=== PATIENT | male | born 1960 | race Hispanic/Latino ===

== ENCOUNTER 2017-10-31 10:40 | Emergency (ER) | payer SELFPAY ==
[2017-10-31] MEDS ORDERED: ASPIRIN 325 MG TAB ONE (12:00)
--- NOTE | 2017-10-31 12:09 | RAD REPORT ---
EXAM DESCRIPTION: CT - Ct Stroke Brain Wo Cont - 10/31/2017 11:47 am CLINICAL HISTORY: Numbness and aphasia COMPARISON: None. TECHNIQUE: Computed axial tomography of the head was obtained. IV contrast was not requested. All CT scans are performed using dose optimization technique as appropriate and may include automated exposure control or mA/KV adjustment according to patient size. FINDINGS: Small area of increased density is present along the frontal convexities bilaterally. The ventricles are normal in caliber. Shift of midline structures is not noted. No hypodense lesions are seen. Fluid within the sinuses/ mastoids is not seen. IMPRESSION: Small areas increased density along the frontal convexities may represent meningiomas. S mall subdural hematomas are another consideration. MRI is recommended Maurizio Aguiar of the emergency room was notified 11:55 a.m. October 31, 2017
[2017-10-31 12:16] LABS: Absolute Lymphocytes (CBC) 1.6 K/uL (0.7-4.9); Absolute Monocytes 0.5 K/uL (0.1-1.3); Absolute Neutrophil 6.8 K/uL (1.8-8.0); Basophils % 0.6 % (0-1.3); Eosinophils % 1.2 % (0-4.4); Hematocrit 47.8 % (39.6-49.0); Lymphocytes % 17.7 % (15.3-44.8); MCH 29.2 pg (27.0-35.0); MCV 88.4 fL (80-100); MPV 12.8 fL (7.6-11.3); Monocytes % 5.4 % (3.3-12.3); RBC Red Blood Cell Count 5.41 M/uL (4.33-5.43)
[2017-10-31 12:17] LABS: Potassium 3.7 mEq/L (3.6-5.0)
[2017-10-31 12:18] LABS: Protime INR 1.1
[2017-10-31 12:23] LABS: Albumin 3.9 g/dL (3.2-5.5); Bilirubin Direct 0.1 mg/dL (0-0.2); Bilirubin Total 0.8 mg/dL (0.3-1.2); Protein, Total 7.2 g/dL (6.0-8.3)
--- NOTE | 2017-10-31 12:31 | RAD REPORT ---
EXAM DESCRIPTION: Brielle Single View10/31/2017 11:54 am CLINICAL HISTORY: Chest pain COMPARISON: none FINDINGS: The lungs appear clear of acute infiltrate. The heart is normal size IMPRESSION: No acute abnormalities displayed
[2017-10-31 12:46] LABS: Urine Blood 2+ (NEG); Urine Glucose NEGATIVE (NEG); Urine Protein NEGATIVE (NEG); Urine Specific Gravity 1.015 (1.005-1.030)
[2017-10-31 13:40] LABS: Urine Bacteria <20 /HPF (NONE SEEN); Urine Culture Reflex Order NOT NEEDED
[2017-10-31 13:41] LABS: Urine Mucus SLIGHT /HPF (NONE SEEN)
[2017-10-31 13:50] LABS: Blood Morphology Comment NOT SEEN (NOT SEEN); Platelet Estimate DECR; Platelets, Giant RARE; Urine White Blood Cell Casts OK
--- NOTE | 2017-10-31 14:57 | ER ---
Nurse's Notes [facility] Name: Pranav Bacon Age: 57 yrs Sex: Male : 1960 Arrival Date: 10/31/2017 Time: 10:46 Bed 14 Private MD: Diagnosis: Meningioma versus subdural hematoma;Headache;Aphasia-Expressive;Thrombocytopenia, unspecified Presentation: 10/31 11:02 Presenting complaint: Patient states: "I just had an episode where I could not speak aa5 about 20 minutes ago". Episode has resolved, speech is clear. Pt also c/o PAUL x 1-2 weeks ago. Pt states "my doctor says is just tension and stress". Pt also reports numbness to left hand since last night. Transition of care: patient was not received from another setting of care. Onset of symptoms was October 31, 2017. Initial Sepsis Screen: Does the patient meet any 2 criteria? No. Patient's initial sepsis screen is negative. Does the patient have a suspected source of infection? No. Patient's initial sepsis screen is negative. Care prior to arrival: None. 11:02 Method Of Arrival: Ambulatory aa5 11:02 Acuity: MARTIN 2 aa5 Triage Assessment: 11:15 Headache History: Denies prior headaches. rb1 11:15 Pain: Pain began x 2 weeks ago. rb1 11:15 Pain: Also complains of. rb1 Historical: - Allergies: 11:05 PENICILLINS; aa5 - Home Meds: 11:06 meloxicam oral oral [Active]; Cyclobenzaprine Oral [Active]; aa5 - PMHx: 11:05 None; aa5 - PSHx: 11:05 Appendectomy; Knee surgery; aa5 - Immunization history:: Adult Immunizations up to date. - Social history:: Smoking status: Patient/guardian denies using tobacco. Screenin:15 Abuse screen: Denies threats or abuse. Nutritional screening: No deficits noted. rb1 Tuberculosis screening: No symptoms or risk factors identified. Fall Risk None identified. 11:50 Patient has been NPO before screening. The patient is alert, able to follow commands. rb1 The patient does not exhibit slurred or garbled speech The patient is not exhibiting difficulty speaking. The patient does not exhibit difficulty understanding words. The patient is able to swallow own secretions with no drooling or need for suction. Patient tolerated one teaspoon of water. No drooling, immediate coughing, gurgling, or clearing of the throat was noted. The patient tolerated 90mL of water. No drooling, immediate coughing, gurgling, or clearing of the throat was noted. The patient passed the bedside swallow screening. Oral medications may be given as ordered. Contact Physician for further diet orders. Provider notified of bedside swallow screening results: Maurizio Aguiar FORM TAMPER OPERATOR. Assessment: 11:15 General: Appears in no apparent distress. comfortable, obese, Behavior is calm, rb1 cooperative. Pain: Complains of pain in head Pain currently is 5 out of 10 on a pain scale. Neuro: Level of Consciousness is awake, alert, obeys commands, Oriented to person, place, time, situation, Signal Circuit Designer are equal bilaterally Moves all extremities. Gait is steady, Speech is normal, Facial symmetry appears normal, Pupils are PERRLA. Cardiovascular: Capillary refill < 3 seconds is brisk in bilateral fingers. Respiratory: Airway is patent Respiratory effort is even, unlabored, Respiratory pattern is regular, symmetrical. GI: No signs and/or symptoms were reported involving the gastrointestinal system. : No signs and/or symptoms were reported regarding the genitourinary system. Derm: Skin is dry, Skin is normal, Skin temperature is warm. Musculoskeletal: Range of motion: intact in all extremities. 12:15 Reassessment: Patient appears in no apparent distress at this time. No changes from rb1 previously documented assessment. Provider at bedside updating pt. and family on POC. 13:13 Reassessment: Patient appears in no apparent distress at this time. Patient and/or rb1 family updated on plan of care and expected duration. Pain level reassessed. Patient is alert, oriented x 3, equal unlabored respirations, skin warm/dry/pink. Family at bedside. 14:10 Reassessment: Patient appears in no apparent distress at this time. No changes from rb1 previously documented assessment. 15:12 Reassessment: Patient appears in no apparent distress at this time. Patient and/or rb1 family updated on plan of care and expected duration. Pain level reassessed. Patient is alert, oriented x 3, equal unlabored respirations, skin warm/dry/pink. 16:10 Reassessment: Patient appears in no apparent distress at this time. No changes from rb1 previously documented assessment. Pt. received a platelet transfusion, tolerated well. No complaints at this time. Vital Signs: 11:05 BP 140 / 98; Pulse 100; Resp 18 S; Temp 98.4(TE); Pulse Ox 98% on R/A; Weight 111.13 kg aa5 (R); Height 5 ft. 5 in. (165.10 cm) (R); Pain 0/10; 12:00 BP 148 / 99; Pulse 100; Resp 19; Pulse Ox 99% on R/A; rb1 13:00 BP 149 / 91; Pulse 96; Resp 17; Pulse Ox 96% on R/A; rb1 14:00 BP 124 / 98; Pulse 84; Resp 16; Pulse Ox 96% on R/A; Pain 6/10; rb1 15:00 BP 140 / 90; Pulse 82; Resp 15; Pulse Ox 99% on R/A; rb1 15:30 BP 138 / 98; Pulse 92; Resp 17; Pulse Ox 98% on R/A; rb1 16:10 BP 147 / 98; Pulse 86; Resp 20; Pulse Ox 99% on R/A; rb1 11:05 Body Mass Index 40.77 (111.13 kg, 165.10 cm) aa5 NIH Stroke Scale Scores: 11:26 NIHSS Score: 0 pm1 ED Course: 10:46 Patient arrived in ED. sb2 11:03 Triage completed. aa5 11:03 Arm band placed on. aa5 11:13 Maurizio Aguiar NP is PHCP. pm1 11:13 Mike Bravo MD is Attending Physician. pm1 11:15 Patient has correct armband on for positive identification. Bed in low position. Call rb1 light in reach. Side rails up X 1. substation inspector on. Pulse ox on. NIBP on. 11:15 Inserted saline lock: 22 gauge in right antecubital area, using aseptic technique. rb1 Blood collected. 11:47 CT Stroke Brain w/o Contrast In Process Unspecified. EDMS 11:51 Anne Cruz, OLIVA is Primary Nurse. rb1 11:54 X-ray completed. Portable x-ray completed in exam room. Patient tolerated procedure jr1 well. Patient moved to radiology via wheelchair. 11:55 Stroke CXR 1 View In Process Unspecified. EDMS 12:31 EKG done, by ED staff, reviewed by Maurizio Aguiar NP. dh3 15:01 initiated transfer with [facility] with Devan. eb 15:10 \\[id number] connected with Stefania WALKER for patient transfer/ has accepted the eb patient. 15:16 Administrative Approval given by Devan Wagner. Pt to go to [address] [place] [address] bed 19, Report eb to be given to transfer line. 16:18 No provider procedures requiring assistance completed. Patient transferred, IV remains rb1 in place. Administered Medications: 12:06 Not Given (provider changed order pending test results): Aspirin 325 mg PO once rb1 Point of Care Testing: Blood Glucose: 12:15 Blood Glucose: 100 mg/dL; dh3 Ranges: Outcome: 14:57 ER care complete, transfer ordered by MD. pm1 16:18 Patient left the ED. rb1 16:18 Transferred by ground EMS to [facility], Transfer form completed. rb1 16:18 Condition: stable 16:18 Instructed on the need for transfer. NIH Stroke Scale - NIH Stroke Score Date: 10/31/2017 Time: 11:26 Total Score = 0 1a. Level of Consciousness (LOC) - 0(Alert) 1b. Level of Consciousness (LOC) (Year \\T\\ Age) - 0(Both) 1c. LOC Commands (Open \\T\\ Closes Eyes/Lining Setter) - 0(Both) 2. Best Gaze (Lateral Gaze Paresis) - 0(Normal) 3. Visual Field Loss - 0(No visual loss) 4. Facial Palsy - 0(Normal) 5a. Left Arm: Motor (10-second hold) - 0(No drift) 5b. Right Arm: Motor (10-second hold) - 0(No drift) 6a. Left Leg: Motor (5-second hold - always test supine) - 0(No drift) 6b. Right Leg: Motor (5-second hold - always test supine) - 0(No drift) 7. Limb Ataxia (finger/nose \\T\\ heel/goddard - test with eyes open) - 0(Absent) 8. Sensory Loss (pinprick arms/legs/face) - 0(Normal) 9. Best Language: Aphasia (description/naming/reading) - 0(No aphasia) 10. Dysarthria (speech clarity - read or repeat words) - 0(Normal) 11. Extinction and Inattention (visual/tactile/auditory/spatial/personal) - 0(No abnormality) Initials: pm1 Signatures: Dispatcher [employer] EDGypsy Franklin jr1 Bety Sparks RN RN aa5 Anne Cruz, OLIVA RN rb1 Maurizio Aguiar, ADAM FORM TAMPER OPERATOR pm1 Char Almodovar dh3 Mindy Reich sb2 Anna Larson Corrections: (The following items were deleted from the chart) 11:04 11:02 Presenting complaint: Patient states: "I just had an episode where I aa5 could not speak about 20 minutes ago". Episode has resolved, speech is clear. Pt also c/o PAUL x 1-2 weeks ago. Pt states "my doctor says is just tension and stress". aa5
--- NOTE | 2017-10-31 14:58 | EDPHYS ---
Physician Documentation [facility] Name: Pranav Bacon Age: 57 yrs Sex: Male : 1960 Arrival Date: 10/31/2017 Time: 10:46 Bed 14 Private MD: ED Physician Mike Bravo HPI: 10/31 12:14 This 57 yrs old Male presents to ER via Ambulatory with complaints of pm1 Inability to talk. 12:14 The patient presents to the emergency department with a speech or higher order brain pm1 function problem, aphasia, expressive. Onset: The symptoms/episode began/occurred just prior to arrival. Context: occurred while the patient was Talking on the phone then he was unable to speak. Stuttering for 3-4 minutes without a history of stuttering. Witnessed by his father. Associated signs and symptoms: Pertinent positives: Pertinent negatives: fever. Severity of symptoms: in the emergency department the symptoms have resolved. Patient's baseline: Neuro: alert and fully oriented, Motor: no deficits, Ambulation: walks without assistance, Speech: normal. Current symptoms: headache, that is mild, right sided. The patient has not experienced similar symptoms in the past. The patient has been recently seen by a physician: Patient was seen by his PCP 1-2 weeks ago for a headache. Diagnosed with stress/tension headache and prescribed Flexeril and diclofenac. Patient reports improvement in headache with medications. 12:14 Left hand numbness present yesterday that felt like he slept on it. Resolved with pm1 making a fist repetitively with his left hand. Historical: - Allergies: 11:05 PENICILLINS; aa5 - Home Meds: 11:06 meloxicam oral oral [Active]; Cyclobenzaprine Oral [Active]; aa5 - PMHx: 11:05 None; aa5 - PSHx: 11:05 Appendectomy; Knee surgery; aa5 - Immunization history:: Adult Immunizations up to date. - Social history:: Smoking status: Patient/guardian denies using tobacco. ROS: 12:15 Constitutional: Negative for fever, chills, and weight loss, Eyes: Negative for injury, pm1 pain, redness, and discharge, ENT: Negative for injury, pain, and discharge, Neck: Negative for injury, pain, and swelling, Cardiovascular: Negative for chest pain, palpitations, and edema, Respiratory: Negative for shortness of breath, cough, wheezing, and pleuritic chest pain, Abdomen/GI: Negative for abdominal pain, nausea, vomiting, diarrhea, and constipation, Back: Negative for injury and pain, : Negative for injury, bleeding, discharge, and swelling, MS/Extremity: Negative for injury and deformity, Skin: Negative for injury, rash, and discoloration. 12:15 Neuro: Positive for headache, expressive aphasia, Negative for altered mental status, dizziness, seizure activity, syncope, near syncope, denies any trauma. Exam: 12:15 Constitutional: This is a well developed, well nourished patient who is awake, alert, pm1 and in no acute distress. Head/Face: Normocephalic, atraumatic. Eyes: Pupils equal round and reactive to light, extra-ocular motions intact. Lids and lashes normal. Conjunctiva and sclera are non-icteric and not injected. Cornea within normal limits. Periorbital areas with no swelling, redness, or edema. ENT: Nares patent. No nasal discharge, no septal abnormalities noted. Tympanic membranes are normal and external auditory canals are clear. Oropharynx with no redness, swelling, or masses, exudates, or evidence of obstruction, uvula midline. Mucous membranes moist. Neck: Trachea midline, no thyromegaly or masses palpated, and no cervical lymphadenopathy. Supple, full range of motion without nuchal rigidity, or vertebral point tenderness. No Meningismus. Chest/axilla: Normal chest wall appearance and motion. Nontender with no deformity. No lesions are appreciated. Cardiovascular: Regular rate and rhythm with a normal S1 and S2. No gallops, murmurs, or rubs. Normal PMI, no JVD. No pulse deficits. Respiratory: Lungs have equal breath sounds bilaterally, clear to auscultation and percussion. No rales, rhonchi or wheezes noted. No increased work of breathing, no retractions or nasal flaring. 12:15 Back: No spinal tenderness. No costovertebral tenderness. Full range of motion. Skin: Warm, dry with normal turgor. Normal color with no rashes, no lesions, and no evidence of cellulitis. MS/ Extremity: Pulses equal, no cyanosis. Neurovascular intact. Full, normal range of motion. 12:15 Abdomen/GI: Inspection: obese Bowel sounds: normal, Palpation: abdomen is soft and non-tender. 12:15 Neuro: Orientation: is normal, Mentation: is normal, Cranial nerves: CN II- XII are normal as tested, Cerebellar function: normal finger to nose testing, Motor: is normal, moves all fours, strength is 5/5 in all extremities, Sensation: is normal, no obvious gross deficits, Gait: is steady, at a normal pace, without difficulty. Vital Signs: 11:05 BP 140 / 98; Pulse 100; Resp 18 S; Temp 98.4(TE); Pulse Ox 98% on R/A; Weight 111.13 kg aa5 (R); Height 5 ft. 5 in. (165.10 cm) (R); Pain 0/10; 12:00 BP 148 / 99; Pulse 100; Resp 19; Pulse Ox 99% on R/A; rb1 13:00 BP 149 / 91; Pulse 96; Resp 17; Pulse Ox 96% on R/A; rb1 14:00 BP 124 / 98; Pulse 84; Resp 16; Pulse Ox 96% on R/A; Pain 6/10; rb1 15:00 BP 140 / 90; Pulse 82; Resp 15; Pulse Ox 99% on R/A; rb1 15:30 BP 138 / 98; Pulse 92; Resp 17; Pulse Ox 98% on R/A; rb1 16:10 BP 147 / 98; Pulse 86; Resp 20; Pulse Ox 99% on R/A; rb1 11:05 Body Mass Index 40.77 (111.13 kg, 165.10 cm) aa5 NIH Stroke Scale Scores: 11:26 NIHSS Score: 0 pm1 MDM: 11:13 Patient medically screened. pm1 14:54 Data reviewed: vital signs. Data interpreted: Pulse oximetry: on room air is 96 %. pm1 Interpretation: normal. Counseling: I had a detailed discussion with the patient and/or guardian regarding: the historical points, exam findings, and any diagnostic results supporting the discharge/admit diagnosis, lab results, radiology results, the need to transfer to another facility, for higher level of care, [facility] does not immediately have the required specialist. 15:16 Physician consultation: [facility] was contacted at 15:17, regarding regarding pm1 transfer, patient's condition, and will see patient. 10/31 11:25 Order name: Basic Metabolic Panel; Complete Time: 12:30 pm1 10/31 11:25 Order name: CBC with Diff; Complete Time: 13:53 pm1 10/31 11:25 Order name: Protime (+inr); Complete Time: 12:30 pm10/31 11:25 Order name: Ptt, Activated; Complete Time: 12:30 pm1 10/31 11:25 Order name: Urine Microscopic Only; Complete Time: 13:41 pm1 10/31 11:35 Order name: LFT's; Complete Time: 12:30 pm1 10/31 11:25 Order name: CT Stroke Brain w/o Contrast; Complete Time: 12:10 pm1 10/31 11:25 Order name: Stroke CXR 1 View; Complete Time: 12:35 pm1 10/31 12:33 Order name: Urine Dipstick--Ancillary (enter results); Complete Time: 13:41 eb 10/31 12:54 Order name: Bb Add On ss 10/31 12:54 Order name: TS ss 10/31 13:10 Order name: Platelets, Leukored Pheresis EDHI 10/31 14:10 Order name: CBC Smear Scan EDMS 10/31 14:31 Order name: ABO/RH no charge; Complete Time: 14:42 EDMS 10/31 11:25 Order name: EKG; Complete Time: 11:26 pm1 10/31 11:25 Order name: Accucheck; Complete Time: 12:32 pm10/31 11:25 Order name: Cardiac monitoring; Complete Time: 11:57 pm10/31 11:25 Order name: EKG - Nurse/Tech; Complete Time: 12:32 pm10/31 11:25 Order name: IV Saline Lock; Complete Time: 11:57 pm10/31 11:25 Order name: Labs collected and sent; Complete Time: 11:57 pm10/31 11:25 Order name: NPO; Complete Time: 12:32 pm10/31 11:25 Order name: O2 Per Protocol; Complete Time: 11:57 pm10/31 11:25 Order name: O2 Sat Monitoring; Complete Time: 11:58 pm1 10/31 11:25 Order name: Stroke Swallow Screen; Complete Time: 12:32 pm10/31 11:25 Order name: Urine Dipstick-Ancillary (obtain specimen); Complete Time: 12:32 pm1 Administered Medications: 12:06 Not Given (provider changed order pending test results): Aspirin 325 mg PO once rb1 Point of Care Testing: Blood Glucose: 12:15 Blood Glucose: 100 mg/dL; dh3 Ranges: Critical Glucose Levels:Adult <50 mg/dl or >400 mg/dl <40 mg/dl or >180 mg/dl Disposition: 18:11 Co-signature as Attending Physician, Mike Bravo MD. rn Disposition: 10/31/17 14:57 Transfer ordered to [facility]. Diagnosis are Meningioma versus subdural hematoma, Headache, Aphasia - Expressive, Thrombocytopenia, unspecified. - Reason for transfer: Higher level of care. - Accepting physician is [facility]. - Condition is Stable. - Problem is new. - Symptoms have improved. NIH Stroke Scale - NIH Stroke Score Date: 10/31/2017 Time: 11:26 Total Score = 0 1a. Level of Consciousness (LOC) - 0(Alert) 1b. Level of Consciousness (LOC) (Year \T\ Age) - 0(Both) 1c. LOC Commands (Open \T\ Closes Eyes/Wad Compressor Operator Adjuster) - 0(Both) 2. Best Gaze (Lateral Gaze Paresis) - 0(Normal) 3. Visual Field Loss - 0(No visual loss) 4. Facial Palsy - 0(Normal) 5a. Left Arm: Motor (10-second hold) - 0(No drift) 5b. Right Arm: Motor (10-second hold) - 0(No drift) 6a. Left Leg: Motor (5-second hold - always test supine) - 0(No drift) 6b. Right Leg: Motor (5-second hold - always test supine) - 0(No drift) 7. Limb Ataxia (finger/nose \T\ heel/goddard - test with eyes open) - 0(Absent) 8. Sensory Loss (pinprick arms/legs/face) - 0(Normal) 9. Best Language: Aphasia (description/naming/reading) - 0(No aphasia) 10. Dysarthria (speech clarity - read or repeat words) - 0(Normal) 11. Extinction and Inattention (visual/tactile/auditory/spatial/personal) - 0(No abnormality) Initials: pm1 Signatures: Dispatcher [employer] EDMS Mike Bravo MD MD rn Calderon, Audri RN RN aa5 Anne Cruz RN RN rb1 Maurizio Aguiar, TABLE GAMES MANAGER TABLE GAMES MANAGER pm1 Corrections: (The following items were deleted from the chart) 14:57 14:57 10/31/2017 14:57 Transfer ordered to [facility]. pm1 Diagnosis is Meningioma versus subdural hematoma; Headache; Aphasia - Expressive. Reason for transfer: Higher level of care. Accepting physician is [facility]. Condition is Stable. Problem is new. Symptoms have improved. pm1 16:18 14:57 10/31/2017 14:57 Transfer ordered to [facility]. rb1 Diagnosis is Meningioma versus subdural hematoma; Headache; Aphasia - Expressive; Thrombocytopenia, unspecified. Reason for transfer: Higher level of care. Accepting physician is [facility]. Condition is Stable. Problem is new. Symptoms have improved. pm1
[2017-10-31] MEDS ORDERED: NA CHLORIDE 0.9% 250 ML ONE (15:12)
--- NOTE | 2017-11-01 05:49 | EKG ---
Test Date: 2017-10-31 Test Time: 12:06:19 Piano Case Maker: JACKSON MEASUREMENT RESULTS: Intervals: Rate: 96 OH: 162 QRSD: 84 QT: 348 QTc: 439 [place]: P: 33 OH: 162 QRS: 266 T: 32 INTERPRETIVE STATEMENTS: Normal sinus rhythm Possible Left atrial enlargement Possible Anterolateral infarct, age undetermined Abnormal ECG No previous ECG available for comparison Electronically Signed On 11-01-17 05:48:10 CDT by David Ferreira
== END 2017-10-31 16:18 | disposition short-term general hospital (02) ==
LOC: ER 10:40
PROC: 30233R1 Transfusion of Nonautologous Platelets into Peripheral Vein, Percutaneous Approach (ICD-10-PCS; principal; 2017-10-31)
DX: D69.6 Thrombocytopenia, unspecified (principal); R51 Headache; Z88.0 Allergy status to penicillin
CPT/HCPCS: 36415; 70450; 71045; 80048; 80076; 81003; 81015; 82962; 85025; 85610; 85730; 86850; 86900; 86901; 93005; 99285; P9035